=== PATIENT | male | born 1960 | race Caucasian/White ===

== ENCOUNTER 2017-04-25 12:51 | Emergency (ER) | payer OTHER ==
[~2017-04-25] VITALS: Ht 167.6 cm; Wt 75.0 kg
[~2017-04-25 12:51] MED LIST: ASPIRIN; HYDROCHLOROTHIAZIDE; OMEPRAZOLE
[2017-04-25 14:31] VITALS: BP 149/95
[2017-04-25 14:32] LABS: CLARITY URINE CLEAR (CLEAR); COLOR URINE YELLOW (YELLOW); GLUCOSE URINE NEGATIVE (NEGATIVE); KETONES URINE NEGATIVE (NEGATIVE); LEUKOCYTE ESTERASE URINE NEGATIVE (NEGATIVE); NITRITE URINE NEGATIVE (NEGATIVE); OCCULT BLOOD URINE NEGATIVE (NEGATIVE); PH URINE 7.5 (4.5-8.0); PROTEIN URINE NEGATIVE (NEGATIVE); SPECIFIC GRAVITY URINE 1.009 (1.005-1.030); UROBILINOGEN URINE 0.2 E.U./dL (0.2-1.0)
[2017-04-25 14:37] LABS: BASOPHILS % 0.4 % (0.0-2.0); EOSINOPHILS % 0.9 % (0.0-5.0); HEMATOCRIT. 44.8 % (42.0-52.0); HEMOGLOBIN. 15.5 g/dL (14.0-18.0); LYMPHOCYTES % 37.1 % (20.0-50.0); MEAN CORPUSCULAR HEMOGLOBIN 31.1 pg (28.0-32.0); MEAN CORPUSCULAR VOLUME 90.1 fL (80.0-94.0); MEAN PLATELET VOLUME 9.5 fl (7.4-10.4); MONOCYTES % 9.5 % (2.0-8.0); NEUTROPHILS % 52.1 % (40.0-76.0); PLATELET 160 x1000/uL (130-400); RED BLOOD CELL COUNT 4.97 mill/uL (4.7-6.1); RED CELL DISTRIBUTION WIDTH 13.7 % (11.6-14.6)
[2017-04-25 14:44] LABS: CHLORIDE 105 mEq/L (98-107)
[2017-04-25 14:49] LABS: CARBON DIOXIDE 29 mEq/L (21-32)
[2017-04-25 15:01] LABS: ETHANOL BLOOD 322 mg/dL
[2017-04-25 15:06] LABS: *AMPHETAMINES SCREEN URINE NEGATIVE (NEGATIVE); *BARBITURATES SCREEN URINE NEGATIVE (NEGATIVE); *BENZODIAZEPINES SCREEN URINE NEGATIVE (NEGATIVE); *COCAINE SCREEN URINE NEGATIVE (NEGATIVE); CANNABINOID URINE SCREEN NEGATIVE (NEGATIVE); METHADONE URINE SCREEN NEGATIVE (NEGATIVE); OPIATES URINE SCREEN NEGATIVE (NEGATIVE); PHENCYCLIDINE URINE SCREEN NEGATIVE (NEGATIVE)
== END 2017-04-25 14:51 | disposition home or self-care (01) ==
LOC: ER 13:03
DX: F10.229 Alcohol dependence with intoxication, unspecified (principal); I10 Essential (primary) hypertension; Y90.8 Blood alcohol level of 240 mg/100 ml or more
CPT/HCPCS: 36415; 80053; 80305; 81003; 85025; 93005; 99285; G0482

== ENCOUNTER 2018-08-27 21:15 | Emergency (ER) | payer SELFPAY ==
[~2018-08-27] VITALS: Ht 180.3 cm; Wt 100.0 kg
[2018-08-27] MEDS ORDERED: FOLIC ACID 1 MG, THIAMINE HCL 100 MG, MVI, ADULT NO.1 10 ML in DEXTROSE 5% WATER 1,000 ML IV ONE ×4 (22:00)
[2018-08-27] MEDS ORDERED: ONDANSETRON HCL 4MG/2ML INJ IV ONE (22:00)
[2018-08-27 23:33] LABS: BASOPHILS % 0.6 % (0.0-2.0); EOSINOPHILS % 0.3 % (0.0-5.0); HEMOGLOBIN. 11.1 g/dL (14.0-18.0); LYMPHOCYTES % 29.2 % (20.0-50.0); MEAN CORPUSCULAR HEMOGLOBIN 28.8 pg (28.0-32.0); MEAN CORPUSCULAR VOLUME 88.3 fL (80.0-94.0); MEAN PLATELET VOLUME 7.8 fl (7.4-10.4); MONOCYTES % 13.4 % (2.0-8.0); NEUTROPHILS % 56.5 % (40.0-76.0); PLATELET 316 x1000/uL (130-400); RED BLOOD CELL COUNT 3.85 mill/uL (4.7-6.1); RED CELL DISTRIBUTION WIDTH 19.7 % (11.6-14.6)
[2018-08-27 23:36] LABS: CHLORIDE 108 mEq/L (98-107)
[2018-08-27 23:47] LABS: ETHANOL BLOOD 405 mg/dL
[2018-08-28 02:40] LABS: *AMPHETAMINES SCREEN URINE NEGATIVE (NEGATIVE); *BARBITURATES SCREEN URINE NEGATIVE (NEGATIVE); *BENZODIAZEPINES SCREEN URINE NEGATIVE (NEGATIVE); *COCAINE SCREEN URINE NEGATIVE (NEGATIVE); METHADONE URINE SCREEN NEGATIVE (NEGATIVE); OPIATES URINE SCREEN NEGATIVE (NEGATIVE)
[2018-08-28 02:41] LABS: CANNABINOID URINE SCREEN NEGATIVE (NEGATIVE); PHENCYCLIDINE URINE SCREEN NEGATIVE (NEGATIVE)
[2018-08-28] MEDS ORDERED: CHLORDIAZEPOXIDE 25MG CAPSULE PO ONE (06:15)
[2018-08-28 10:04] VITALS: BP 146/82
== END 2018-08-28 10:07 | disposition home or self-care (01) ==
LOC: ER 21:15
DX: T51.91XA Toxic effect of unspecified alcohol, accidental (unintentional), initial encounter (principal); G92 Toxic encephalopathy; I10 Essential (primary) hypertension; F10.129 Alcohol abuse with intoxication, unspecified; Y92.9 Unspecified place or not applicable; Y90.8 Blood alcohol level of 240 mg/100 ml or more
CPT/HCPCS: 36415; 70450; 80048; 80305; 80307; 80329; 85025; 93005; 96365; 96375; 99284; G0482; J2405; J3411; J3490; J7070

== ENCOUNTER 2022-11-22 11:25 | Inpatient (IN) | payer BC ==
[~2022-11-22] VITALS: Ht 175.3 cm; Wt 90.3 kg
[2022-11-22] MEDS ORDERED: SODIUM CHLORIDE 0.9% 1,000 ML IV ONE (12:00)
[2022-11-22 12:26] LABS: BG BASE EXCESS 0.8 mmol/L (-2.0-2.0); BG CARBOXYHEMOGLOBIN 0.3 % (0.5-1.5); BG DEOXYHEMOGLOBIN 3.5 % (0.0-5.0); BG FRACTION INSPIRED OXYGEN 21; BG HCO3 ACT 24.4 mmol/L (22.0-26.0); BG METHEMOGLOBIN 0.7 % (0.0-1.5); BG OXYGEN SATURATION 96.5 % (92.0-98.5); BG OXYHEMOGLOBIN 95.5 % (94.0-97.0); BG PCO2 35.4 mmHg (35.0-45.0); BG PH 7.457 (7.350-7.450); BG PO2 88.3 mmHg (75.0-100.0); BG SAMPLE SITE RIGHT RADIAL; BG VENT MODE ROOM AIR
[2022-11-22 14:18] LABS: HEMATOCRIT. 38.8 % (42.0-52.0); HEMOGLOBIN. 13.2 g/dL (14.0-18.0); MEAN CORPUSCULAR HEMOGLOBIN 29.9 pg (28.0-32.0); MEAN CORPUSCULAR VOLUME 88.1 fL (80.0-94.0); MEAN PLATELET VOLUME 9.7 fl (7.4-10.4); PLATELET 205 x1000/uL (130-400); RED CELL DISTRIBUTION WIDTH 15.5 % (11.6-14.6)
[2022-11-22 14:19] LABS: CHLORIDE 79 mEq/L (98-107)
[2022-11-22 14:21] LABS: INR 1.1; PROTHROMBIN TIME 11.9 sec (9.6-11.0)
[2022-11-22] MEDS: POTASSIUM CHLORIDE 20MEQ TABLET SR PO ONE ×2 (15:23→15:46)
[2022-11-22] MEDS: ONDANSETRON HCL 4MG/2ML INJ IV NR ×2 (15:23→16:08)
[2022-11-22 15:31] LABS: PLATELET ESTIMATE NORMAL
[2022-11-22 15:31] LABS: CLARITY URINE CLOUDY (CLEAR); COLOR URINE YELLOW (YELLOW); KETONES URINE NEGATIVE (NEGATIVE); LEUKOCYTE ESTERASE URINE NEGATIVE (NEGATIVE); NITRITE URINE NEGATIVE (NEGATIVE); OCCULT BLOOD URINE NEGATIVE (NEGATIVE); PROTEIN URINE 1+ (NEGATIVE); SPECIFIC GRAVITY URINE 1.022 (1.005-1.030); UROBILINOGEN URINE 0.2 E.U./dL (0.2-1.0)
[2022-11-22] MEDS ORDERED: POTASSIUM CHLORIDE 20MEQ TABLET SR PO ONE (16:00)
[2022-11-22] MEDS: AMLODIPINE 10MG TABLET PO SCH (16:00)
[2022-11-22] MEDS ORDERED: HYDROCODONE/ACETAMINOPHEN 7.5/325MG TABLET PO PRN (16:00)
[2022-11-22] MEDS ORDERED: NALOXONE HCL 0.4 MG/ML 1ML VIAL IV PRN (16:00)
[2022-11-22] MEDS ORDERED: LORAZEPAM 2MG/ML CPJ IV PRN (16:00)
[2022-11-22] MEDS: PANTOPRAZOLE SODIUM 40 MG/VIAL IV SCH ×4 (16:00→19:55)
[2022-11-22] MEDS ORDERED: GUAIFENESIN 200MG/10ML SUGAR FREE UDC PO PRN (16:00)
[2022-11-22] MEDS ORDERED: MAGNESIUM/ALUMINUM HYDROXIDE/SIMETHICONE 30ML UDC PO PRN (16:00)
[2022-11-22] MEDS ORDERED: DOCUSATE SODIUM 100MG CAPSULE PO PRN (16:00)
[2022-11-22] MEDS ORDERED: CLONIDINE 0.1MG TABLET PO PRN (16:00)
[2022-11-22] MEDS ORDERED: ACETAMINOPHEN 325MG TABLET PO PRN ×2 (16:00)
[2022-11-22] MEDS ORDERED: NALOXONE HCL 0.4MG/ML VIAL IV PRN (16:30)
[2022-11-22] MEDS ORDERED: KCL 20MEQ/100ML PREMIX 100 ML IV NR (17:00)
[2022-11-22] MEDS ORDERED: FOLIC ACID 1 MG, THIAMINE HCL 100 MG in SODIUM CHLORIDE 0.9% 1,000 ML IV ONE (17:00)
[2022-11-22 18:55] LABS: TOTAL IRON BINDING CAPACITY 353 ug/dL (250-450)
[2022-11-22 19:23] LABS: FERRITIN 68 ng/mL (22-322)
[2022-11-22 19:24] LABS: PROSTRATE SPECIFIC AG TOTAL 11.81 ng/mL (0.0-4.0)
[2022-11-22 19:33] LABS: VITAMIN B12 SERUM 573 pg/mL (211-911)
[2022-11-22 19:41] LABS: FOLIC ACID (FOLATE) SERUM > 20.00 ng/mL (>5.38)
[2022-11-22] MEDS: CHLORDIAZEPOXIDE 25MG CAPSULE PO SCH (22:00)
[2022-11-23] VITALS (7 sets, daily range): BP systolic 105–155; BP diastolic 58–81
[2022-11-23 00:24] LABS: HEMATOCRIT 35.4 % (42.0-52.0)
[2022-11-23] MEDS: KCL 20MEQ/100ML PREMIX 100 ML IV SCH ×4 (02:25→15:10)
[2022-11-23] MEDS: SODIUM CHLORIDE 0.9% 1,000 ML IV SCH ×2 (02:28→09:39)
[2022-11-23 03:30] LABS: *AMPHETAMINES SCREEN URINE NEGATIVE (NEGATIVE); *BARBITURATES SCREEN URINE NEGATIVE (NEGATIVE); *BENZODIAZEPINES SCREEN URINE NEGATIVE (NEGATIVE); *COCAINE SCREEN URINE NEGATIVE (NEGATIVE); CANNABINOID URINE SCREEN PRESUMTIVE POSITIVE (NEGATIVE); METHADONE URINE SCREEN NEGATIVE (NEGATIVE); OPIATES URINE SCREEN NEGATIVE (NEGATIVE); PHENCYCLIDINE URINE SCREEN NEGATIVE (NEGATIVE)
[2022-11-23] MEDS ORDERED: KCL 20MEQ/100ML PREMIX 100 ML IV SCH (05:45)
[2022-11-23] MEDS: CHLORDIAZEPOXIDE 25MG CAPSULE PO SCH ×3 (05:51→22:10)
[2022-11-23 06:46] LABS: INR 1.1; PROTHROMBIN TIME 11.5 sec (9.6-11.0)
[2022-11-23 06:51] LABS: BASOPHILS % 0.1 % (0.0-2.0); HEMATOCRIT. 31.4 % (42.0-52.0); LYMPHOCYTES % 14.5 % (20.0-50.0); MEAN CORPUSCULAR HEMOGLOBIN 31.2 pg (28.0-32.0); MEAN CORPUSCULAR VOLUME 88.9 fL (80.0-94.0); MEAN PLATELET VOLUME 9.6 fl (7.4-10.4); MONOCYTES % 8.3 % (2.0-8.0); NEUTROPHILS % 77.1 % (40.0-76.0); PLATELET 187 x1000/uL (130-400); RED BLOOD CELL COUNT 3.53 mill/uL (4.7-6.1); RED CELL DISTRIBUTION WIDTH 15.9 % (11.6-14.6)
[2022-11-23 06:53] LABS: CHLORIDE 87 mEq/L (98-107)
[2022-11-23 07:05] LABS: CREATINE KINASE 49 IU/L (39-308); CREATINE KINASE MB FRACTION 1.2 ng/mL (0.5-3.6); HDL CHOLESTEROL 43 mg/dL (40-59); LDL CHOLESTEROL 93 mg/dL (5-100); T4 FREE 1.06 ng/dL (0.76-1.46)
[2022-11-23] MEDS ORDERED: POTASSIUM CHLORIDE 20MEQ TABLET SR PO NR ×2 (09:30→11:00)
[2022-11-23] MEDS: THIAMINE HCL 100MG TABLET PO SCH (09:40)
[2022-11-23] MEDS: AMLODIPINE 10MG TABLET PO SCH (09:40)
[2022-11-23] MEDS: FOLIC ACID/VITAMIN B COMP W-C TABLET PO SCH (09:40)
[2022-11-23] MEDS: MULTIVITAMINS,THER W-MINERALS TABLET PO SCH (09:42)
[2022-11-23] MEDS ORDERED: METOCLOPRAMIDE HCL 10MG/2ML VIAL IV NR ×2 (11:00→13:00)
[2022-11-23 13:13] LABS: HEMATOCRIT 30.7 % (42.0-52.0); HEMOGLOBIN 10.4 g/dL (14.0-18.0)
[2022-11-23] MEDS: PIPERACILLIN/TAZOBACTAM 3.375 G in DEXTROSE 5% WATER 50 ML IV SCH ×2 (15:11→22:10)
[2022-11-23] MEDS: PANTOPRAZOLE SODIUM 40 MG/VIAL IV SCH (22:10)
[2022-11-24] VITALS: BP 124/27
[2022-11-24] MEDS: SODIUM CHLORIDE 0.9% 1,000 ML IV SCH ×2 (01:38→08:58)
[2022-11-24 04:00] VITALS: BP 111/56
[2022-11-24] MEDS: CHLORDIAZEPOXIDE 25MG CAPSULE PO SCH (06:38)
[2022-11-24] MEDS: PIPERACILLIN/TAZOBACTAM 3.375 G in DEXTROSE 5% WATER 50 ML IV SCH (06:38)
[2022-11-24] MEDS: PANTOPRAZOLE SODIUM 40 MG/VIAL IV SCH (06:43)
[2022-11-24 07:50] LABS: BASOPHILS % 0.1 % (0.0-2.0); EOSINOPHILS % 0.9 % (0.0-5.0); HEMATOCRIT. 28.2 % (42.0-52.0); HEMOGLOBIN. 9.7 g/dL (14.0-18.0); LYMPHOCYTES % 22.9 % (20.0-50.0); MEAN CORPUSCULAR HEMOGLOBIN 31.1 pg (28.0-32.0); MEAN CORPUSCULAR VOLUME 90.4 fL (80.0-94.0); MEAN PLATELET VOLUME 9.1 fl (7.4-10.4); MONOCYTES % 6.8 % (2.0-8.0); NEUTROPHILS % 69.3 % (40.0-76.0); PLATELET 187 x1000/uL (130-400); RED BLOOD CELL COUNT 3.12 mill/uL (4.7-6.1); RED CELL DISTRIBUTION WIDTH 15.6 % (11.6-14.6)
[2022-11-24 08:00] VITALS: BP 144/77
[2022-11-24] MEDS: AMLODIPINE 10MG TABLET PO SCH (08:56)
[2022-11-24] MEDS: MULTIVITAMINS,THER W-MINERALS TABLET PO SCH (08:56)
[2022-11-24] MEDS: FOLIC ACID/VITAMIN B COMP W-C TABLET PO SCH (08:56)
[2022-11-24] MEDS: THIAMINE HCL 100MG TABLET PO SCH (08:57)
[2022-11-24 09:35] LABS: CHLORIDE 97 mEq/L (98-107)
[2022-11-24 10:10] VITALS: BP 144/77
[2022-11-24] MEDS ORDERED: PANTOPRAZOLE SODIUM 40 MG/VIAL IV SCH (21:00)
== END 2022-11-24 10:47 | disposition home or self-care (01) | DRG 391 ==
LOC: ER 11:27 → EDBEDREQ 15:03 → EDBEDREQTM 15:03 → 3WST 16:17
PROVIDERS: ADMIT Internal Medicine Pulmonary Disease; ATTEND Internal Medicine Pulmonary Disease
DX: K52.9 Noninfective gastroenteritis and colitis, unspecified (principal); G93.41 Metabolic encephalopathy; J96.01 Acute respiratory failure with hypoxia; E87.1 Hypo-osmolality and hyponatremia; E87.3 Alkalosis; F10.239 Alcohol dependence with withdrawal, unspecified; N17.9 Acute kidney failure, unspecified; Z20.822 Contact with and (suspected) exposure to COVID-19; D64.9 Anemia, unspecified; E83.51 Hypocalcemia; E86.0 Dehydration; I10 Essential (primary) hypertension; E87.6 Hypokalemia; E88.09 Other disorders of plasma-protein metabolism, not elsewhere classified; K21.9 Gastro-esophageal reflux disease without esophagitis; K44.9 Diaphragmatic hernia without obstruction or gangrene; K57.90 Diverticulosis of intestine, part unspecified, without perforation or abscess without bleeding; K76.0 Fatty (change of) liver, not elsewhere classified; F32.A Depression, unspecified; N28.1 Cyst of kidney, acquired; Z85.46 Personal history of malignant neoplasm of prostate
CPT/HCPCS: 36415; 36600; 71045; 74176; 76700; 80048; 80053; 80061; 80076; 80305; 81003; 82270; 82375; 82550; 82553; 82607; 82728; 82746; 82805; 83540; 83550; 83605; 83735; 83930; 83935; 84100; 84145; 84153; 84439; 84443; 84484; 85014; 85018; 85025; 85044; 86850; 86900; 87426; 93005; 93306; 93970; 97162; 99291; C1893; C9113; J2405; J2543; J2765; J3411; J3480; J3490; J7030; J7060; G0103

== ENCOUNTER 2023-06-01 12:28 | Emergency (ER) | payer SELFPAY ==
[~2023-06-01] VITALS: Ht 175.3 cm; Wt 85.0 kg
[~2023-06-01 12:28] MED LIST changes: -ASPIRIN
[2023-06-01 12:31] VITALS: O2SAT 95
[2023-06-01] MEDS ORDERED: SODIUM CHLORIDE 0.9% 1,000 ML IV ONE (13:00)
[2023-06-01 13:05] LABS: BASOPHILS % 0.7 % (0.0-2.0); EOSINOPHILS % 1.9 % (0.0-5.0); HEMATOCRIT. 35.9 % (42.0-52.0); HEMOGLOBIN. 12.2 g/dL (14.0-18.0); LYMPHOCYTES % 19.1 % (20.0-50.0); MEAN CORPUSCULAR HEMOGLOBIN 31.7 pg (28.0-32.0); MEAN CORPUSCULAR HGB CONC 33.9 g/dL (31.0-37.0); MEAN CORPUSCULAR VOLUME 93.5 fL (80.0-94.0); MEAN PLATELET VOLUME 9.1 fl (7.4-10.4); MONOCYTES % 9.5 % (2.0-8.0); NEUTROPHILS % 68.8 % (40.0-76.0); PLATELET 198 x1000/uL (130-400); RED BLOOD CELL COUNT 3.84 mill/uL (4.7-6.1); RED CELL DISTRIBUTION WIDTH 15.5 % (11.6-14.6); WHITE BLOOD COUNT 3.6 x1000/uL (4.5-11.0)
[2023-06-01 13:15] LABS: INDEX HEMOLYSI 1 (1-3)
[2023-06-01 13:18] LABS: AMMONIA 25 uMol/L (<32)
[2023-06-01 13:19] LABS: PARTIAL THROMBOPLASTIN TIME 28.5 sec (23.4-31.0); PROTHROMBIN TIME 10.7 sec (9.6-11.0)
[2023-06-01 13:21] LABS: CHLORIDE 108 mEq/L (98-107); INDEX HEMOLYSI 1 (1-3); INDEX ICTERIC 1 (1-4); INDEX LIPEMIC 1 (1-3); POTASSIUM 3.5 mEq/L (3.5-5.1); SODIUM 141 mEq/L (136-145)
[2023-06-01 13:28] LABS: ACETAMINOPHEN <2 ug/mL ug/mL (10-30); ALANINE AMINOTRANSFERASE 21 IU/L (13-61); ALBUMIN 3.5 g/dL (3.4-5.0); ASPARTATE AMINOTRANSFERASE 18 IU/L (15-37); BILIRUBIN TOTAL 0.3 mg/dL (0.1-1.0); CALCIUM 8.8 mg/dL (8.5-10.1); CARBON DIOXIDE 27 mEq/L (21-32); CREATININE 0.8 mg/dL (0.6-1.3); ETHANOL BLOOD 285 mg/dL (<10); GLUCOSE 133 mg/dL (70-105); UREA NITROGEN BLOOD 18 mg/dL (7-21)
[2023-06-01 13:31] LABS: *AMPHETAMINES SCREEN URINE NEGATIVE (NEGATIVE); *BARBITURATES SCREEN URINE NEGATIVE (NEGATIVE); *BENZODIAZEPINES SCREEN URINE NEGATIVE (NEGATIVE); *COCAINE SCREEN URINE NEGATIVE (NEGATIVE); CANNABINOID URINE SCREEN PRESUMTIVE POSITIVE (NEGATIVE); ECSTASY MDMA SCREEN URINE NEGATIVE (NEGATIVE); OPIATES URINE SCREEN NEGATIVE (NEGATIVE); PHENCYCLIDINE URINE SCREEN NEGATIVE (NEGATIVE)
[2023-06-01 14:51] LABS: TROPONIN I HIGH SENSITIVITY 7 ng/L (<78)
[2023-06-01] MEDS ORDERED: IBUP-2028 MT (16:08)
[2023-06-01 20:33] VITALS: BP 125/62; PULSE 90; RESP 16; TEMP 98.5
== END 2023-06-01 20:36 | disposition home or self-care (01) ==
LOC: ER 12:28
DX: S09.90XA Unspecified injury of head, initial encounter (principal); F10.229 Alcohol dependence with intoxication, unspecified; R41.82 Altered mental status, unspecified; F32.9 Major depressive disorder, single episode, unspecified; I10 Essential (primary) hypertension; W18.39XA Other fall on same level, initial encounter; Y93.89 Activity, other specified; Y92.89 Other specified places as the place of occurrence of the external cause; Y99.8 Other external cause status
CPT/HCPCS: 80053; 80305; 80307; 80329; 80320; 82140; 85025; 85610; 85730; 84484; 36415; 71045; 70450; 72125; 93005; 96360; 99285; J7030; Z7610 ×2; G0480

== ENCOUNTER 2024-03-03 09:58 | Emergency (ER) | payer SELFPAY ==
[~2024-03-03] VITALS: Ht 175.3 cm; Wt 97.0 kg
[~2024-03-03 09:58] MED LIST changes: +IBUP-2028 MT
[2024-03-03 09:59] VITALS: BP 130/85; PULSE 68; RESP 19; TEMP 98.8; O2SAT 95
== END 2024-03-03 15:29 | disposition home or self-care (01) ==
LOC: ER 09:58
DX: F10.129 Alcohol abuse with intoxication, unspecified (principal); F32.A Depression, unspecified; I10 Essential (primary) hypertension; R51.9 Headache, unspecified; Y90.9 Presence of alcohol in blood, level not specified
CPT/HCPCS: 99284

== ENCOUNTER 2024-06-28 15:08 | Emergency (ER) | payer SELFPAY ==
[~2024-06-28] VITALS: Ht 172.7 cm; Wt 160.0 kg
[2024-06-28 15:11] VITALS: O2SAT 94
[2024-06-28] MEDS ORDERED: ONDANSETRON HCL 4MG/2ML INJ IV STA (15:42)
[2024-06-28] MEDS ORDERED: PANTOPRAZOLE SODIUM 40 MG/VIAL IV ONE (15:45)
[2024-06-28 16:48] LABS: CARBON DIOXIDE 27 mEq/L (21-32); CHLORIDE 108 mEq/L (98-107); POTASSIUM 3.9 mEq/L (3.5-5.1); SODIUM 142 mEq/L (136-145)
[2024-06-28 16:49] LABS: CALCIUM 8.7 mg/dL (8.7-10.4)
[2024-06-28 16:53] LABS: CREATININE 0.8 mg/dL (0.6-1.3)
[2024-06-28 16:54] LABS: GLUCOSE 110 mg/dL (70-105); UREA NITROGEN BLOOD 12 mg/dL (9-23)
[2024-06-28 17:03] LABS: ETHANOL BLOOD 305 mg/dL (<10)
[2024-06-28 17:20] LABS: BASOPHILS % 0.3 % (0.0-2.0); EOSINOPHILS % 0.5 % (0.0-5.0); HEMATOCRIT. 36.6 % (42.0-52.0); HEMOGLOBIN. 12.4 g/dL (14.0-18.0); LYMPHOCYTES % 11.3 % (20.0-50.0); MEAN CORPUSCULAR HEMOGLOBIN 32.3 pg (28.0-32.0); MEAN CORPUSCULAR HGB CONC 33.9 g/dL (31.0-37.0); MEAN CORPUSCULAR VOLUME 95.4 fL (80.0-94.0); MEAN PLATELET VOLUME 7.9 fl (7.4-10.4); MONOCYTES % 8.3 % (2.0-8.0); NEUTROPHILS % 79.6 % (40.0-76.0); PLATELET 236 x1000/uL (130-400); RED BLOOD CELL COUNT 3.84 mill/uL (4.7-6.1); RED CELL DISTRIBUTION WIDTH 16.6 % (11.6-14.6); WHITE BLOOD COUNT 4.6 x1000/uL (4.5-11.0)
[2024-06-28] MEDS: SODIUM CHLORIDE 0.9% 1,000 ML IV ONE (17:30)
[2024-06-28] MEDS: PANTOPRAZOLE SODIUM 40 MG/VIAL IV NR (19:00)
[2024-06-28] MEDS: ONDANSETRON HCL 4MG/2ML INJ IV NR (19:00)
[2024-06-28 21:00] VITALS: BP 119/67; PULSE 81; RESP 19; TEMP 36.94740; O2SAT 95
== END 2024-06-28 22:00 | disposition home or self-care (01) ==
LOC: ER 15:08
DX: F10.129 Alcohol abuse with intoxication, unspecified (principal); R41.82 Altered mental status, unspecified; I10 Essential (primary) hypertension; Z85.46 Personal history of malignant neoplasm of prostate; Y90.8 Blood alcohol level of 240 mg/100 ml or more
CPT/HCPCS: 80048; 80320; 85025; 36415; 70450; 96361; 96374; 96375; 99285; J2405; J2470; J7030; Z7610 ×2; G0480